=== PATIENT | male | born 1935 | race Caucasian/White ===

== ENCOUNTER 2021-11-30 13:19 | Emergency (ER) | payer MEDICARE, OTHER, SELFPAY ==
[2021-11-30] VITALS (8 sets, daily range): BP systolic 134–159; BP diastolic 71–76; PULSE 68; RESP 16; TEMP 36.3; O2SAT 95–100
--- NOTE | ~2021-11-30 | XR_ITS ---
XR pelvis 1-2V 11/30/2021 14:28 Indication: Status post fall. Pelvic pain. Procedure: AP pelvis Comparison: No prior studies for comparison. Findings: Moderate osteoarthritis of the hips. Pelvic rings are intact. Sacral foramen are symmetric. No acute fracture, subluxation or dislocation. There is mild lower lumbar spondylosis. Impression: 1: Moderate osteoarthritis of the hips. Reviewed, dictated and finalized at location B. Impression: 1: Moderate osteoarthritis of the hips.
--- NOTE | ~2021-11-30 | CT_ITS ---
EXAMINATION: CT lumbar spine wo con DATE: 11/30/2021 14:24 INDICATION: Low back injury. TECHNIQUE: Computed tomography (CT) of the lumbar spine was performed without intravenous contrast. A utomated exposure control and iterative reconstruction technique were employed. The dose-length produ ct was 1162.51 mGy-cm. COMPARISON: None FINDINGS: There is a moderate-sized left pleural effusion. There is 4 mm retrolisthesis of L5 on S1. There is a compression fracture of L1 with less than 1/5 loss of height. There is mildly decreased di sc height at L3-L4 and L4-L5 and moderately decreased disc height at L5-S1. There are 2 mm and 3 mm s tones in right kidney. The following disc levels are specifically discussed: L1-L2: The disc is bulging. There is moderate right and mild left facet joint osteoarthritis. There i s mild bilateral neural foraminal stenosis. There is mild central canal stenosis. L2-L3: The disc is bulging. There is severe bilateral facet joint osteoarthritis. There is mild bilat eral neural foraminal stenosis. There is mild central canal stenosis. L3-L4: The disc is bulging. There is severe bilateral facet joint osteoarthritis. There is moderate b ilateral neural foraminal stenosis. There is mild central canal stenosis. L4-L5: The disc is bulging. There is moderate right and severe left facet joint osteoarthritis. There is moderate bilateral neural foraminal stenosis. There is moderate central canal stenosis. L5-S1: The disc is bulging. There is moderate bilateral facet joint osteoarthritis. There is moderate bilateral neural foraminal stenosis. There is mild central canal stenosis. IMPRESSION: 1. Acute L1 compression fracture with less than 1/5 loss of height. 2. Moderate lumbar spondylosis. 3. Moderate-sized left pleural effusion. Reviewed, dictated and finalized at location A.
--- NOTE | 2021-11-30 14:07 | ED.FALL ---
HPI - Fall General Chief Complaint: Fall Stated Complaint: fall Time Seen by Provider: 11/30/21 14:02 Source: RN notes reviewed History of Present Illness HPI Narrative: Patient presents emergency department from home for low back pain. Patient states just prior to arrival he was trying to hang a clock and he was standing on the floor and when he fell backwards striking his lower back he denies striking his head or any loss of consciousness he notes pain in the bilateral lower back that is worse with sitting upright movement he denies any head injury, vision changes, chest pain, shortness of breath, abdominal pain nausea vomiting, numbness or tingling in the extremities bowel or bladder incontinence or any other symptoms. States he did not take any pain medication at home Related Data Allergies Allergy/AdvReac Type Severity Reaction Status Date / Time No Known Allergies Allergy Verified 11/30/21 14:07 Review of Systems Review of Systems: Gen.: Denies fevers or chills ENT: Denies congestion Respiratory: Denies shortness of breath or cough CV: Denies chest pain or palpitations GI: Denies abdominal pain nausea, emesis or diarrhea denies burning, urgency, frequency or hematuria denies incontinence Musculoskeletal: See HPI Neuro: Denies numbness, tingling, weakness or focal weakness Skin: Denies rash Except as documented, all other systems reviewed and negative [facility] Past Medical History Medical History (Updated 11/30/21 @ 16:34 by Can Foster DO) Patient denies significant medical history Social History Social History (Updated 11/30/21 @ 14:08 by Can Foster DO) Smoking status: Never smoker Exam Narrative: APPEARANCE: No acute distress, nontoxic, resting in bed EYES: EOMI HEENT: Normocephalic, atraumatic, OMM RESPIRATORY: No respiratory distress Clear to auscultation bilaterally with no rhonchi wheezing or rales. CARDIOVASCULAR: Regular rate and rhythm without murmurs rubs or gallops. ABDOMINAL: Soft, nontender, nondistended, no rebound or guarding MUSCULOSKELETAl: Moves all extremities. No clubbing, cyanosis or edema. Back: No midline thoracic or lumbar tenderness palpation tender palpation bilateral paravertebral muscles L3-5 pain worse with sitting upright NEURO: Awake and alert x 4. Following commands, speech normal, no focal deficits SKIN:: Warm, dry. No rashes lesions or abrasions PSYCHIATRIC: Normal affect/mood, Course Course Emergency Course: Patient was able to get up and use the restroom I discussed with the patient and his the results of the work-up and discussed admission for placement in rehab versus going home the patient would prefer to go home with pain medication Patient's PCP was paged Discussed with patient results of workup and diagnosis. Discussed need for follow-up with primary care, proper use of medication, and reasons to return to the emergency department. Patient understands and agrees to current treatment plan Vital Signs Vital signs: Vital Signs Temperature 97.3 F L 11/30/21 13:25 Pulse Rate 68 11/30/21 13:25 Respiratory Rate 16 11/30/21 13:25 Blood Pressure 134/74 11/30/21 13:25 Pulse Oximetry 98 11/30/21 13:25 Temperature 97.3 F L 11/30/21 13:25 Pulse Rate 68 11/30/21 13:25 Respiratory Rate 16 11/30/21 13:25 Blood Pressure 134/74 11/30/21 13:25 Pulse Oximetry 98 11/30/21 13:25 MDM - Fall Imaging Data Radiologist's impression: ITS Impressions Lumbar Spine CT 11/30/21 14:30 IMPRESSION: 1. Acute L1 compression fracture with less than 1/5 loss of height. 2. Moderate lumbar spondylosis. 3. Moderate-sized left pleural effusion. Pelvis X-Ray 11/30/21 14:30 Impression: 1: Moderate osteoarthritis of the hips. Discharge Plan Discharge Clinical Impression: Compression fx, lumbar spine Patient Disposition: Home, Self-Care Condition: Stable Instructions: Antibiotic Form, Vertebral Compre
[2021-11-30] MEDS: HYDROcodone/acetaminophen (*CRX) 5-325 MG TABLET 1 TAB PO (14:09)
--- NOTE | 2021-11-30 16:30 | PC.NURSE ---
Patient assisted to restroom via wheelchair. Patient was able to transfer from bed to wheelchair without issue, walked across room without assistance.
== END 2021-11-30 16:52 | disposition home or self-care (01) ==
PROVIDERS: Emergency Provider Emergency Medicine; PCP Internal Medicine
DX: S32.010A Wedge compression fracture of first lumbar vertebra, initial encounter for closed fracture (principal); M16.0 Bilateral primary osteoarthritis of hip; M47.816 Spondylosis without myelopathy or radiculopathy, lumbar region; J90 Pleural effusion, not elsewhere classified; W18.39XA Other fall on same level, initial encounter
CPT/HCPCS: 72131; 72170; 99284; A9270